=== PATIENT | male | born 1940 | race Two or more races ===

== ENCOUNTER 2024-12-21 13:08 | Emergency (ER) | payer OTHER, BC ==
[~2024-12-21] VITALS: Ht 190.5 cm; Wt 81.6 kg
[2024-12-21] MEDS ORDERED: LODOSYN25 MG PO (13:39)
[2024-12-21] MEDS ORDERED: MYRBETRIQ50 MG PO (13:40)
[2024-12-21] MEDS ORDERED: CLOPIDOGREL BIS75 MG PO (13:40)
[2024-12-21] MEDS ORDERED: ATORVASTATIN CA40 MG PO (13:40)
[2024-12-21] MEDS ORDERED: TAMS0.4C PO (13:40)
[2024-12-21] MEDS ORDERED: TRAVATAN Z5 ML (13:41)
== END 2024-12-21 15:01 | disposition designated cancer center or children's hospital (05) ==
LOC: ER 13:08
DX: R04.0 Epistaxis (principal)